=== PATIENT | female | born 1980 | race Caucasian/White ===

== ENCOUNTER 2017-12-26 12:36 | Emergency (ER) | payer BC, SELFPAY ==
[2017-12-26 12:52] VITALS: BP 106/66; PULSE 88; RESP 16; TEMP 36.4; O2SAT 97; BMI 26.2
--- NOTE | 2017-12-26 13:05 | ED_ITS ---
HPI - Extremity Injury (Upper) <NAVI Hair - Last Filed: 12/26/17 21:42> General Chief Complaint: Extremity Injury, Upper Stated Complaint: BEE STING LEFT HAND, CANT GET RING OFF Time Seen by Provider: 12/26/17 13:06 History of Present Illness HPI narrative: Healthy 37-year-old female here for complaint of swelling into her left hand status post being stung by a bee yesterday. She reports increased swelling last night until this morning where she is now unable to remove her wedding band. She reports increased pain around the wedding band area as manipulation and trying to get the ring off as cause discomfort. She denies any shortness of breath. She denies any tightness in her throat. Symptoms are limited to the left hand. She denies having a history of anaphylaxis due to bee stings. No other concerns or complaints at this time. MD complaint: injury to: left and hand Related Data Home Medications Medication Instructions Recorded Confirmed acetaminophen 325 mg capsule 325 mg PO Q6H PRN 12/26/17 12/26/17 diphenhydramine 25 mg capsule 25 mg PO Q4-6H PRN 12/26/17 12/26/17 lorazepam 0.5 mg tablet 0.25 mg PO BEDTIME PRN 12/26/17 12/26/17 sertraline PO 12/26/17 12/26/17 Previous Rx's Medication Instructions Recorded cetirizine 10 mg PO DAILY #7 tab 12/26/17 Allergies Allergy/AdvReac Type Severity Reaction Status Date / Time No Known Drug Allergies Allergy Verified 12/26/17 12:52 Review of Systems <NAVI Hair - Last Filed: 12/26/17 21:42> Constitutional Denies chills, Denies fever(s), Denies lethargy and Denies weakness Eyes Denies change in vision, Denies eye discharge, Denies irritation and Denies loss of vision ENT Ears, Nose, Mouth, and Throat: Denies change in voice, Denies neck pain and Denies sore throat Cardiovascular Denies chest pain, Denies irregular heart rhythm, Denies lightheadedness, Denies palpitations, Denies dyspnea, Denies dyspnea on exertion and Denies orthopnea Respiratory Denies cough, Denies dyspnea, Denies dyspnea on exertion and Denies wheezing Gastrointestinal Gastrointestinal: Denies abdominal pain, Denies change in bowel habits, Denies diarrhea, Denies nausea and Denies vomiting Genitourinary Denies hematuria, Denies flank pain, Denies urinary incontinence and Denies urinary urgency Musculoskeletal Denies neck pain Comments: Left hand and fingers swelling Integumentary/Breasts Denies pruritus, Denies erythema, Denies rash and Denies wounds Neurologic Denies confusion, Denies loss of vision and Denies weakness Psychiatric Denies anxiety, Denies confusion, Denies depression, Denies homicidal ideation and Denies suicidal ideation Endocrine Denies palpitations Allergic/Immunologic Denies wheezing Exam <NAVI Hair - Last Filed: 12/26/17 21:42> Initial Vital Signs Initial Vital Signs: Vital Signs Temperature 97.6 F 12/26/17 12:52 Pulse Rate 88 12/26/17 12:52 Respiratory Rate 16 12/26/17 12:52 Blood Pressure 106/66 12/26/17 12:52 Pulse Oximetry 97 12/26/17 12:52 Const General: cooperative and well developed Nutritional Appearance: well nourished Orientation: alert, awake, oriented x3 and not confused [facility] Mouth: oral mucosae normal and moist mucous membranes Eyes Conjunctivae: conjunctivae normal Sclera: sclerae normal Pupils: PERRL EOM: EOM intact bilaterally Resp Effort & Inspection: normal respiratory effort, able to speak in complete sentences, no respiratory distress and no use of accessory muscles Auscultation: clear to auscultation bilaterally, no rales, no rhonchi and no wheezes Cardio Rate: regular rate Rhythm: regular rhythm Heart Sounds: no click, no gallops, no murmurs and no rubs Pulses: normal peripheral pulses Skin General: no rashes or lesions noted, No jaundice and No petechiae Extrem Other: Swelling to the left hand and fingers. No signs of trauma. Distal sensation is intact. Distal cap refill less than 2 sec. Full range of motion. <Roxana Medina DO - Last Filed: 12/27/17 08:12> Initial Vital Signs Initial Vital Signs: Vital Signs Temperature 97.6 F 12/26/17 12:52 Pulse Rate 88 12/26/17 12:52 Respiratory Rate 16 12/26/17 12:52 Blood Pressure 106/66 12/26/17 12:52 Pulse Oximetry 97 12/26/17 12:52 Procedures <NAVI Hair - Last Filed: 12/26/17 21:42> Misc Procedure Name of Procedure: Wedding band to left ring finger was removed with ring cutter. No complications. Patient tolerated well distal CMS is intact Technique/Description of procedure performed: Wedding band to left ring finger was removed with ring cutter. No complications. Patient tolerated well distal CMS is intact Patient tolerated procedure: Well Complications: none Course <NAVI Hair - Last Filed: 12/26/17 21:42> Vital Signs - 8 hr 12/26/17 13:51 Pulse Rate 82 Blood Pressure 116/72 Pulse Oximetry 100 <Roxana Medina DO - Last Filed: 12/27/17 08:12> Vital Signs - 8 hr 12/26/17 13:51 Pulse Rate 82 Blood Pressure 116/72 Pulse Oximetry 100 MDM - Extremity Injury (Upper) <NAVI Hair - Last Filed: 12/26/17 21:42> MDM Narrative Medical decision making narrative: Due to amount of swelling into the left ring finger secondary to bee sting ring had they removed by a ring cutter. Patient tolerated well no complications. Patient had some relief after removing the ring. Ring was given back to patient. She is prescribed Zyrtec to use over the next several days to help with histamine response may use Benadryl at night.. [id number] ibuprofen as needed for any discomfort. Follow up with primary care provider in the next few days for re-evaluation. For any worsening symptoms return emergency room. Discharge Plan Departure Patient Disposition: Home, Self-Care Clinical Impression: Localized swelling on left hand, Bee sting Discharge Date/Time: 12/26/17 13:52 Interventions: ED Discharge Assessment Last Done: 12/26/17 13:51 Instructions: DI for Insect Bites and Stings Activity Restrictions/Additional Instructions: Rate was removed in the emergency room for comfort and to prevent loss of circulation. Zyrtec as prescribed which is an antihistamine that is not a sedating as Benadryl to use during the day use as directed. May use Benadryl at night. Uaxq-gzi-dngbqss ibuprofen as needed for any discomfort. Follow up with her primary care provider in the next few days for re-evaluation. For any worsening symptoms return to the emergency room. Prescription was like chronically sent to preferred pharmacy. Prescriptions: New cetirizine 10 mg tablet 10 mg PO DAILY Qty: 7 RF: 0 No Action lorazepam 0.5 mg tablet 0.25 mg PO BEDTIME PRNRF: 0 diphenhydramine HCl [Benadryl] 25 mg capsule 25 mg PO Q4-6H PRNRF: 0 acetaminophen [Tylenol] 325 mg capsule 325 mg PO Q6H PRNRF: 0 sertraline PO RF: 0 Referrals: Haylee Harvey ARNP [Primary Care Provider] - <Roxana Medina DO - Last Filed: 12/27/17 08:12> Cosign ED Attending Dianeature Attestation: I was immediately available in the department for consultation. Documentation has been reviewed. I agree with assessment and plan.
[2017-12-26 13:10] VITALS: BP 119/72; PULSE 93; RESP 18; O2SAT 99
--- NOTE | 2017-12-26 13:40 | PC.NURSE ---
Pt was stung by a bee yesterday,severe swelling of left hand. Pt unable to remove ring on ring finger. Pt has positive cms distal to ring
[2017-12-26 13:51] VITALS: BP 116/72; PULSE 82; O2SAT 100
== END 2017-12-26 13:52 | disposition home or self-care (01) ==
PROVIDERS: Emergency Provider Nurse Practitioner Family; PCP Nurse Practitioner Family
DX: M79.89 Other specified soft tissue disorders (principal)
CPT/HCPCS: 99282

== ENCOUNTER → 2019-02-06 09:50 | Outpatient (CLI) | payer BC, SELFPAY ==
--- NOTE | 2019-02-06 | DI.US.S_ITS ---
PROCEDURE: US PELVIC COMPLETE INDICATIONS: ABN UTERINE AND VAGINAL BLEEDING, UNSPECIFIED TECHNIQUE: Real-time scanning was performed of the pelvic organs, with image documentation. Additional endovaginal scanning was necessary due to incomplete visualization of the adnexal and endometrial structures by transabdominal scanning. COMPARISON: [facility], US, PELVIC COMPLETE, 08/11/2015, 10:48. FINDINGS: Transabdominal scanning: Trace free pelvic fluid. Endovaginal scanning: Uterus: Uterus is anteverted and normal in size at 9.7 x 4.2 x 5.5 cm. No uterine mass seen. Uterine echotexture is somewhat heterogeneous. The endometrium measures 10 mm in combined thickness. Echogenic focus in the lower uterine segment measuring 5 mm with adjacent vascularity. Ovaries: Normal in size and echogenicity. No cyst or mass. Right ovary measures 3.4 x 2.1 x 1.7 cm. Left ovary measures 3.8 x 2 x 3 cm. IMPRESSION: 1. Normal endometrial thickness measuring 10 mm. 2. Questionable endometrial polyp the measuring 5 mm. 3. Normal ovaries. Trace physiologic. Dictated by: Johnnie Rascon M.D. on 02/06/2019 at 11:27 Approved by: Johnnie Rascon M.D. on 02/06/2019 at 11:34
== END ==
PROVIDERS: PCP Nurse Practitioner Family; Visit Provider Nurse Practitioner Family
DX: N93.9 Abnormal uterine and vaginal bleeding, unspecified (principal)
CPT/HCPCS: 76830; 76856

== ENCOUNTER → 2020-03-25 12:53 | Outpatient (CLI) | payer BC, SELFPAY ==
--- NOTE | 2020-03-25 13:02 | DI.CT.S_ITS ---
PROCEDURE: CT ABDOMEN PELVIS WO CON INDICATIONS: MICROSCOPIC HEMATURIA TECHNIQUE: Noncontrast 5 mm thick sections acquired from the diaphragms to the symphysis. 5 mm thick coronal and sagittal reformats were then performed. For radiation dose reduction, the following was used: automated exposure control, adjustment of mA and/or kV according to patient size. COMPARISON: None. FINDINGS: Image quality: Excellent. Lung bases: Lung bases are clear. Heart size is normal. Urinary system: Both kidneys are normal in size. No kidney stones. No hydronephrosis or perinephric fat stranding. Both ureters appear non-dilated throughout their expected courses. Bladder wall thickness is normal; no calcified bladder stones. Other solid organs: Liver is normal in size. Gallbladder negative . Pancreas is normal in contours. Spleen is normal in size. No adrenal nodules. Peritoneum and bowel: Unenhanced bowel loops demonstrate normal wall thickness and caliber. No free fluid or air. Nodes and vessels: No retroperitoneal or mesenteric adenopathy by size criteria. Aorta and inferior vena cava are normal in caliber. Abdominal wall: No ventral hernias. Pelvis: No free pelvic fluid. No inguinal hernias or adenopathy. Bones: No suspicious bony lesions. No vertebral body compression fractures. IMPRESSION: No urolithiasis. No evidence of urinary obstruction Normal appendix Elsewhere, no acute abnormality Dictated by: Ayan Link M.D. on 03/25/2020 at 15:04 Approved by: Ayan Link M.D. on 03/25/2020 at 15:24
== END ==
PROVIDERS: PCP Internal Medicine; Referring Provider Internal Medicine; Visit Provider Internal Medicine
DX: R31.29 Other microscopic hematuria (principal)
CPT/HCPCS: 74176

== ENCOUNTER → 2020-12-10 12:19 | Outpatient (CLI) | payer OTHER, SELFPAY ==
--- NOTE | 2020-12-10 | DI.US.S_ITS ---
PROCEDURE: US PELVIC COMPLETE INDICATIONS: DUB TECHNIQUE: Real-time scanning was performed of the pelvic organs, with image documentation. Additional endovaginal scanning was necessary due to incomplete visualization of the adnexal and endometrial structures by transabdominal scanning. COMPARISON: [facility], , US PELVIC COMPLETE, 02/06/2019, 10:06. FINDINGS: Uterus: Uterus is normal in size at 8.9 x 4.5 x 5.6 cm. The endometrium measures 15.6 mm in combined thickness. Echogenic polypoid mass again seen involving the endometrial complex measuring 1.0 x 0.6 x 0.8 cm. Ovaries: Right ovary is normal measuring 1.7 x 1.6 x 2.1 cm and the left ovary is not seen. Other: No pathologic free abdominal or pelvic fluid. IMPRESSION: 1. Possible endometrial polyp or other neoplastic process which has increased in size now measuring up to 1.0 cm. Gynecologic consultation is recommended for further assessment and if indicated, pre and post-contrast gynecologic protocol MRI could be performed for further assessment. Dictated by: Gabriel JOYCE Interpreted: Jose Lincoln MD on 12/10/2020 at 13:09 Transcribed by: ADONAY on 12/10/2020 at 13:11 Approved by: Steven Carlisle M.D. on 12/10/2020 at 13:39
== END ==
PROVIDERS: PCP Internal Medicine; Referring Provider Internal Medicine; Visit Provider Internal Medicine
DX: N93.9 Abnormal uterine and vaginal bleeding, unspecified (principal); N84.0 Polyp of corpus uteri
CPT/HCPCS: 76830; 76856

== ENCOUNTER → 2021-02-17 15:40 | Outpatient (CLI) | payer OTHER, SELFPAY ==
[2021-02-17 16:57] LABS: COVID19 -Nasal RAPID Negative (Negative)
== END ==
PROVIDERS: PCP Internal Medicine; Visit Provider Specialist
DX: Z01.812 Encounter for preprocedural laboratory examination (principal); Z20.822 Contact with and (suspected) exposure to COVID-19
CPT/HCPCS: 87635

== ENCOUNTER 2021-02-18 08:44 | Day surgery (SDC) | payer OTHER, SELFPAY ==
[2021-02-15 08:25] VITALS: BMI 28.3
[2021-02-18] VITALS (9 sets, daily range): BP systolic 106–138; BP diastolic 65–84; PULSE 84–98; RESP 12–18; TEMP 36.6–37.1; O2SAT 95–99; BMI 28.3
--- NOTE | 2021-02-18 | PATH_ITS ---
[facility] Accession Number: [id number] . 01 Material submitted: . PART A: endometrium - ENDOMETRIAL CURETTINGS PART B: endometrium - ENDOMETRIAL POLYP . 01 Diagnosis: A. Endometrium, Curettage: Late proliferative endometrium with breakdown, and focal features suggestive of polyp. Negative for endometrioid intraepithelial neoplasia and malignancy. . B. Endometrial Polyp, Polypectomy: A fragment of nonproliferative endometrium with features of polyp. Background endometrium with late proliferative features and breakdown. Negative for endometrioid intraepithelial neoplasia and malignancy. MRV 02/22/2021 1631 Local . 01 Electronically signed: . Morena Wang MD, Pathologist NPI- [id number] . 01 Gross description: . Part A: ENDOMETRIAL CURETTINGS: Received in formalin are multiple fragment(s) of wood, soft tissue measuring 2.6 x 2.0 x 0.6 cm in aggregate submitted entirely in 1 cassette(s) Part B: ENDOMETRIAL POLYP: Received in formalin are 5 fragment(s) of wood, soft tissue measuring 0.7 x 0.6 x 0.5 cm to 0.4 x 0.3 x 0.1 cm submitted entirely in 1 cassette(s) /QBJ 02/19/2021 0307 Local . 01 Pathologist provided ICD-10: N84.0, N94.89 . 01 CPT . 265335, [id number] Performed at: 01 [facility] [address] [place] [id number] MD Reese Muñoz MD Phone: [phone]
[2021-02-18] MEDS: LACTATED RINGERS 1,000 ML 100 ML IV ×2 (09:25→10:48)
--- NOTE | 2021-02-18 11:40 | PM.PREOP ---
Pre-operative Note COVID-19 COVID-19 status: Negative Result date/Date tested (Pos, Neg/Pending): 02/17/21 Interval Note History & Physical reviewed/Exam performed by Physician: Yes Changes to H&P: No
--- NOTE | 2021-02-18 12:28 | SUR.OPER ---
Lithotomy on padded OR bed, head on pillow, arms secured on padded arm boards at <90 degrees abduction. Legs secured in padded yellow fins stirrups.
--- NOTE | 2021-02-18 12:43 | PM.OP.1 ---
Operative Date/Time/Diagnoses Date of procedure: 02/18/21 Time of procedure: 12:44 Pre-op diagnosis: Menorrhagia with endometrial mass on ultrasound Post-op diagnosis: same Procedure & Clinicians Procedure: Hysteroscopy with resection of polyps and endometrial curettage Same procedure as scheduled: Yes Indications: Menorrhagia with ultrasound showing an intracavitary mass Surgeon: Ava Saleh Click Yes if Unassisted: Yes Anesthesia Type: General Operative Notes Findings: 2 endometrial polyps, normal endometrium otherwise Closure Type: not applicable Specimen(s): other (Endometrial polyps and endometrial curettage) Estimated Blood Loss (mL): 10 Blood products transfused: none Procedure in detail: The patient was brought to the operating room where she underwent general anesthesia. She was placed in low stirrups She was prepped and draped in usual sterile fashion with pulsatile stockings in place and functional, warming in place. A single-tooth tenaculum was placed on the anterior lip of the cervix and the uterus dilated to #8 Hegar dilator. The hysteroscope was placed into the uterus with a sorbitol solution running and under constant suction. The resecting loop set at 80 W of cutting was used to resect the polyps down to the level of the endometrium. A endometrial curettage was performed. The polyps and the endometrial curettage was sent to pathology. The patient went to recovery room in good condition counts of instruments and sponges were correct. The sorbitol solution I=O approximately 1000 mL. Complications: none Post-operative Condition: stable Disposition: same day surgery Plan for aftercare: Home when awake and stable. Patient will be contacted for phone postop visit
[2021-02-18] MEDS: fentaNYL 100 MCG/2 ML INJ IV (12:57)
--- NOTE | 2021-02-18 13:11 | SUR.PHASEI ---
received to PACU after general anesthesia. Airway patent, self maintained. Report from OBI Nguyen and Dr Khan.
[2021-02-18] MEDS: KETOROLAC 30 MG/ML VIAL IV (13:27)
[2021-02-18] MEDS: ACETAMINOPHEN 325 MG TABLET 975 MG PO (13:29)
[2021-02-18] MEDS: OXYCODONE IR 5 MG TABLET PO ×2 (13:30→14:17)
== END 2021-02-18 14:25 | disposition home or self-care (01) ==
PROVIDERS: PCP Internal Medicine; Referring Provider Specialist; Visit Provider Specialist
PROC: 0UDB8ZZ Extraction of Endometrium, Via Natural or Artificial Opening Endoscopic (ICD-10-PCS; CPT 58558; principal; 2021-02-18 09:45)
DX: N84.0 Polyp of corpus uteri (principal); F17.210 Nicotine dependence, cigarettes, uncomplicated; F32.9 Major depressive disorder, single episode, unspecified
CPT/HCPCS: 58558; 81025; J1100; J1885; J2250; J2405; J2704; J3010

== ENCOUNTER → 2021-06-09 17:44 | Outpatient (ROUT) | payer OTHER, SELFPAY ==
[2021-06-09 18:59] LABS: COVID-19 CEPHEID PCR (VTM/NP) POSITIVE (Negative)
== END ==
PROVIDERS: PCP Internal Medicine; Visit Provider Family Medicine
DX: Z03.818 Encounter for observation for suspected exposure to other biological agents ruled out (principal)
CPT/HCPCS: U0003

== ENCOUNTER → 2022-02-07 14:47 | Outpatient (CLI) | payer OTHER, SELFPAY ==
--- NOTE | 2022-02-07 | DI.US.S_ITS ---
PROCEDURE: US PELVIC COMPLETE INDICATIONS: Abnormal uterine and vaginal bleeding, unspecified TECHNIQUE: Real-time scanning was performed of the pelvic organs, with image documentation. Additional endovaginal scanning was necessary due to incomplete visualization of the adnexal and endometrial structures by transabdominal scanning. COMPARISON: [facility], US, US PELVIC COMPLETE, 12/10/2020, 12:32. FINDINGS: Uterus: Uterus is anteverted and normal in size at 9.0 x 4.5 x 5.8 cm. The myometrium is homogeneous. The endometrium measures 10.8 mm combined thickness. Ovaries: The right ovary measures 2.7 x 2.2 x 2.3 cm, with a calculated ovarian volume of 7.1 cc. The left ovary measures 5.1 x 3.2 x 4.2 cm, with a calculated ovarian volume of 35.6 cc. The ovaries have a normal sonographic appearance. There is a 1.8 x 1.4 cm complex cyst in the right ovary, as well as a 2.9 x 32.3 cm complex cyst in the left ovary. Additional 1.6 cm simple cyst noted in the left ovary. No adnexal masses are seen. Other: No pathologic free abdominal or pelvic fluid. IMPRESSION: 1. Bilateral complex ovarian cysts measure up to 1.6 cm on the left. Approved by: Gael Gomez M.D. on 02/07/2022 at 17:24
== END ==
PROVIDERS: PCP Internal Medicine; Referring Provider Internal Medicine; Visit Provider Internal Medicine
DX: N93.9 Abnormal uterine and vaginal bleeding, unspecified; N83.292 Other ovarian cyst, left side; N83.291 Other ovarian cyst, right side
CPT/HCPCS: 76830; 76856

== ENCOUNTER → 2022-07-19 14:19 | Outpatient (CLI) | payer OTHER, SELFPAY ==
--- NOTE | 2022-07-19 14:22 | DI.US.S_ITS ---
PROCEDURE: US PELVIC COMPLETE INDICATIONS: FOLLOW-UP OVARIAN CYSTS TECHNIQUE: Real-time scanning was performed of the pelvic organs, with image documentation. Additional endovaginal scanning was necessary due to incomplete visualization of the adnexal and endometrial structures by transabdominal scanning. COMPARISON: [facility], US, US PELVIC COMPLETE, 02/07/2022, 14:57. FINDINGS: Uterus: Uterus is anteverted and normal in size at 9.0 x 4.3 x 6.1 cm. The myometrium is homogeneous. The endometrium measures 6.9 mm combined thickness. Ovaries: The right ovary measures 3.1 x 2.0 x 3.7 cm, with a calculated ovarian volume of 11.9 cc. The left ovary measures 4.3 x 2.8 x 2.0 cm, with a calculated ovarian volume of 13.8 cc. The ovaries have a normal sonographic appearance. Less than 12 follicles can be seen in each ovary. No adnexal masses are seen. Simple cysts are present within the bilateral ovaries. The largest on the right measures 1.4 cm in diameter and the largest on the left measures 1.4 cm in diameter. Other: No pathologic free abdominal or pelvic fluid. IMPRESSION: 1. Bilateral simple ovarian cysts which are within physiologic limits for size given patient age. We strive to produce accurate, complete, and clear reports of imaging services. To assist us in improving patient care, this report was composed using standard report templates and voice recognition software. Therefore, it may contain abnormal punctuation, insertions and/or omissions. Occasional wrong-word or sound-alike substitutions may occur. Though we review the report and make efforts to correct it, we do recommend that the report be read carefully in proper context to recognize any text inaccuracies. Dictated by: Kimberly Gaytan M.D. on 07/19/2022 at 18:00 Approved by: Kimberly Gaytan M.D. on 07/19/2022 at 18:02
== END ==
PROVIDERS: PCP Internal Medicine; Referring Provider Obstetrics & Gynecology; Visit Provider Obstetrics & Gynecology
DX: N83.291 Other ovarian cyst, right side (principal); N83.292 Other ovarian cyst, left side
CPT/HCPCS: 76830; 76856

== ENCOUNTER 2022-09-08 15:45 | Emergency (ER) | payer OTHER, SELFPAY ==
[2022-09-08 15:51] VITALS: BP 137/89; PULSE 87; RESP 17; TEMP 36.6; O2SAT 99; BMI 25.2
--- NOTE | 2022-09-08 16:58 | ED_ITS ---
HPI - Female Genitourinary <Elier Pikcard PA-C - Last Filed: 09/08/22 18:16> General Chief complaint: Urogenital-Female Stated complaint: Urinary tract pain Time Seen by Provider: 09/08/22 16:56 Source: patient Mode of arrival: Ambulatory History of Present Illness HPI Narrative: This is a 41-year-old female presents emergency department due to urinary hesitancy as well as dysuria for approximately the last week. She also states some mild lower abdominal pain. Denies any fevers, nausea, vomiting, lower back pain, or any other concerning signs or symptoms. Patient denies any vaginal discharge and is stable and committed relationship denies any rashes or hematuria. Related Data Home Medications Medication Instructions Recorded Confirmed acetaminophen 325 mg capsule 325 mg PO Q6H PRN Pain 12/26/17 05/11/22 (Tylenol) bupropion HCl 150 mg 24 hr tablet, 150 mg PO QAM 01/28/21 09/08/22 extended release sertraline 100 mg tablet 150 mg PO DAILY 02/17/21 09/08/22 naproxen 250 mg tablet 250 mg PO BID 09/08/22 09/08/22 Previous Rx's Medication Instructions Recorded nitrofurantoin 100 mg PO Q12H 5 days #10 caps 09/08/22 monohydrate/macrocrystals 100 mg capsule (Macrobid) Allergies Allergy/AdvReac Type Severity Reaction Status Date / Time No Known Drug Allergies Allergy Verified 09/08/22 15:53 Review of Systems <Elier Pickard PA-C - Last Filed: 09/08/22 18:16> Review of Systems Narrative: GENERAL: Denies chills, fatigue, malaise, fever, sweats. HEENT: Denies sinus pain, ear pain, sore throat, difficulty swallowing, dizziness. RESPIRATORY: Denies dyspnea, cough, wheezing, hemoptysis, sputum. CARDIOVASCULAR: Denies chest pain, palpitations, orthopnea, edema, GASTROINTESTINAL: Denies nausea, vomiting, abdominal pain, diarrhea, constipation, melena. : Reports urinary hesitancy and dysuria MUSCULOSKELETAL: denies weakness, joint pain, or bony pain SKIN: Denies rash, skin lesions, or other NEUROLOGIC: Denies weakness, headache, numbness, change in speech, confusion, seizures, incoordination. PSYCHIATRIC: No concerning psychosocial issues. 12 point review of systems is negative except for those stated above Patient History <Elier Pickard PA-C - Last Filed: 09/08/22 18:16> alcohol intake frequency: 0-2 drinks per day Substance Use Type: does not use Exam <Elier Pickard PA-C - Last Filed: 09/08/22 18:16> Narrative Exam Narrative: GENERAL: Well-developed patient, in mild distress. HEAD: Atraumatic. Normocephalic. EYES: Pupils equal round and reactive. Extraocular motions intact. No scleral i cterus. No injection or drainage. ENT: Nose without bleeding, purulent drainage. Throat without erythema, tonsillar hypertrophy or exudate. Airway patent. NECK: Trachea midline. Non tender CARDIOVASCULAR: Regular rate and rhythm without murmurs, gallops, or rubs. RESPIRATORY: Clear to auscultation. Breath sounds equal bilaterally. No wheezes, rales, or rhonchi. GASTROINTESTINAL: Abdomen soft, non-tender, nondistended. EXTREMITIES: No edema or joint tenderness. BACK: Nontender without deformity or crepitance. No flank tenderness. NEURO: AOx3. SKIN: No rash or erythema of visible areas Initial Vital Signs Initial Vital Signs: Vital Signs Temperature 98 F 09/08/22 15:51 Pulse Rate 87 09/08/22 15:51 Respiratory Rate 17 09/08/22 15:51 Blood Pressure 137/89 09/08/22 15:51 Pulse Oximetry 99 09/08/22 15:51 Oxygen Delivery Method Room Air 09/08/22 15:51 <Roxana Medina DO - Last Filed: 09/09/22 07:15> Initial Vital Signs Initial Vital Signs: Vital Signs Temperature 98 F 09/08/22 15:51 Pulse Rate 87 09/08/22 15:51 Respiratory Rate 17 09/08/22 15:51 Blood Pressure 137/89 09/08/22 15:51 Pulse Oximetry 99 09/08/22 15:51 Oxygen Delivery Method Room Air 09/08/22 15:51 Course <Elier Pickard PA-C - Last Filed: 09/08/22 18:16> Orders Ordered: ED Orders 09/08/22 16:36 Urinalysis and Microscopic Stat Urine Culture Stat Vital Signs Vital signs: Vital Signs - 8 hr 09/08/22 15:51 Temperature 98 F Pulse Rate 87 Respiratory Rate 17 Blood Pressure 137/89 Pulse Oximetry 99 Oxygen Delivery Method Room Air <Roxana Medina DO - Last Filed: 09/09/22 07:15> Orders Ordered: ED Orders 09/08/22 16:36 Urinalysis and Microscopic Stat Urine Culture Stat Vital Signs Vital signs: Vital Signs - 8 hr 09/08/22 15:51 Temperature 98 F Pulse Rate 87 Respiratory Rate 17 Blood Pressure 137/89 Pulse Oximetry 99 Oxygen Delivery Method Room Air MDM - Female Genitourinary <Elier Pickard PA-C - Last Filed: 09/08/22 18:16> Lab Data Labs: Lab Results 09/08/22 Range/Units 16:36 Urine Color Yellow Urine Appearance Slightly cloudy Urine pH 6.0 (4.5-8.0) Ur Specific [place] >=1.030 H (1.000-1.035) Urine Protein 2+ H (Negative) Urine Glucose (UA) Negative (Negative) g/dL Urine Ketones Negative (NEGATIVE) Urine Occult Blood 2+ H (Negative) Urine Nitrate Negative (Negative) Urine Bilirubin Negative (NEGATIVE) Urine Urobilinogen 1.0 (0.2) E.U./dL Ur Leukocyte Esterase Negative (NEGATIVE) Urine RBC 5-10/hpf H (0-5/HPF) Urine WBC 1-5/hpf (0-5/HPF) Ur Squamous Epith Cells 5-10 /hpf H (0-5/HPF) Amorphous Sediment 1+ Urine Bacteria Few (2-10) H (None) Urine Mucus 1+ H (Negative) Ur Culture Indicated? Specimen cultured Point of Care Testing Test Results Negative Urine Dip Bedside Urine Glucose Negative Bedside Urine Bilirubin - Negative Bedside Urine Ketone +/- 5 Urine Specific [place] 1.030 Bedside Urine Occult Blood +/- Bedside Urine pH 6.0 Bedside Urine Protein + 30 Bedside Urine Urobilinogen - Negative Bedside Urine Nitrite - Negative Bedside Urine Leukocytes - Negative Esterase MDM Narrative Medical decision making narrative: MDM * differential diagnosis includes but not limited to UTI, pyelonephritis, gonorrhea, chlamydia, PID * Prior records reviewed: Patient has not been here for similar complaints in the past * My lab interpretation: UA positive for blood and bacteria * My imgaing interpretation: None * Clinical Decision Rules/Scores evaluated: None * Independent discussions with: None ED Course: This is a 41-year-old female presents emergency department due to suspected UTI based on symptoms. UA did not show any leukocytes or nitrites but did show positive for blood and bacteria. Cyst likelihood that patient had any kind of STD and deemed to be very low as she is stable income in relationship and does not describe any vaginal discharge. Low concern for pyelonephritis at this time as she has no systemic symptoms is afebrile. Will treat with oral antibiotics. Shared Decision Making: Discussed plan with patient who is comfortable with the plan. Social Considerations: None Disposition: Discharged to home <Roxana Medina, - Last Filed: 09/09/22 07:15> Lab Data Labs: Lab Results 09/08/22 Range/Units 16:36 Urine Color Yellow Urine Appearance Slightly cloudy Urine pH 6.0 (4.5-8.0) Ur Specific [place] >=1.030 H (1.000-1.035) Urine Protein 2+ H (Negative) Urine Glucose (UA) Negative (Negative) g/dL Urine Ketones Negative (NEGATIVE) Urine Occult Blood 2+ H (Negative) Urine Nitrate Negative (Negative) Urine Bilirubin Negative (NEGATIVE) Urine Urobilinogen 1.0 (0.2) E.U./dL Ur Leukocyte Esterase Negative (NEGATIVE) Urine RBC 5-10/hpf H (0-5/HPF) Urine WBC 1-5/hpf (0-5/HPF) Ur Squamous Epith Cells 5-10 /hpf H (0-5/HPF) Amorphous Sediment 1+ Urine Bacteria Few (2-10) H (None) Urine Mucus 1+ H (Negative) Ur Culture Indicated? Specimen cultured Point of Care Testing Test Results Negative Urine Dip Bedside Urine Glucose Negative Bedside Urine Bilirubin - Negative Bedside Urine Ketone +/- 5 Urine Specific [place] 1.030 Bedside Urine Occult Blood +/- Bedside Urine pH 6.0 Bedside Urine Protein + 30 Bedside Urine Urobilinogen - Negative Bedside Urine Nitrite - Negative Bedside Urine Leukocytes - Negative Esterase Discharge Plan Departure Patient Disposition: Home Clinical Impression: Dysuria Instructions: DI for Urinary Tract Infection (UTI) Activity Restrictions/Additional Instructions: Thank you for coming to the [facility] Emergency Department today. Patient symptoms we will treat for a suspected UTI. Please begin taking the antibiotics that was prescribed. I hope you feel better soon. Prescriptions: New nitrofurantoin monohyd/m-cryst [Macrobid] 100 mg capsule 100 mg PO Q12H 5 Days Qty: 10 0RF Rx Instructions: must administer with a meal/food No Action acetaminophen [Tylenol] 325 mg capsule 325 mg PO Q6H PRN (Reason: Pain) bupropion HCl 150 mg tablet extended release 24 hr 150 mg PO QAM sertraline 100 mg tablet 150 mg PO DAILY naproxen 250 mg Tablet 250 mg PO BID Referrals: Diann Harris ARNP [Primary Care Provider] - Stand Alone Forms: Patient Portal/API <Roxana Medina DO - Last Filed: 09/09/22 07:15> Cosign ED Attending Cosramiroature Attestation: I was immediately available in the department for consultation. Documentation has been reviewed.
[2022-09-08 17:01] LABS: Bilirubin Urine UA NEGATIVE (NEGATIVE); Color Urine UA YELLOW; Glucose Urine UA NEGATIVE (Negative); Ketones Urine UA NEGATIVE (NEGATIVE); Leukocyte Esterase Urine UA NEGATIVE (NEGATIVE); Nitrite Urine UA NEGATIVE (Negative); Occult Blood Urine UA 2+ (Negative); Protein Urine UA 2+ (Negative); Specific Gravity Urine UA >=1.030 (1.000-1.035)
[2022-09-08 17:04] LABS: Appearance Urine UA Slightly Cloudy
[2022-09-08 17:16] LABS: Amorphous Sediment Urine 1+; Bacteria Urine Few (2-10); Culture Indicated Urine Specimen Cultured; Mucus Urine 1+ (Negative); RBC Urine 5-10/HPF (0-5/HPF); Squamous Epithelial Cell Urine 5-10 /HPF (0-5/HPF); WBC Urine 1-5/HPF (0-5/HPF)
--- NOTE | 2022-09-08 17:38 | PC.NURSE ---
Patient reports symptoms started yesterday, urine dark I know i run on dehydrated side Reports tried hydrating and flushing out urine but not able to fully empty bladder. Urges to go but small amounts. Denies fevers or chills. Mild lower back pain
== END 2022-09-08 18:06 | disposition home or self-care (01) ==
PROVIDERS: Emergency Medicine; Emergency Provider Physician Assistant Medical; PCP Internal Medicine
DX: R30.0 Dysuria (principal)
CPT/HCPCS: 81001; 81003; 81025; 87086; 99282

== ENCOUNTER → 2023-09-04 17:18 | Outpatient (CLI) | payer OTHER, SELFPAY ==
--- NOTE | 2023-09-04 | DI.MG.S_ITS ---
BILATERAL DIGITAL SCREENING MAMMOGRAM 3D/2D WITH CAD: 09/04/2023 CLINICAL: Baseline exam. Routine screening. No prior exams were available for comparison. Both breasts are heterogeneously dense, which may obscure small masses (category c / 51-75% glandular tissue). Current study was also evaluated with a Computer Aided Detection (CAD) system. No significant masses, calcifications, or other findings are seen in either breast. IMPRESSION: NEGATIVE There is no mammographic evidence of malignancy. A 1 year screening mammogram is recommended. Based on the Tyrer Cuzick model (a risk assessment model) the patient's lifetime risk is 10.5% and her 10 year risk is 1.3%. According to the ACR, ACS, and NCCN guidelines, an annual breast MRI exam along with mammogram is recommended if the patient's lifetime risk is 20% or greater. This exam was interpreted at Station ID: [id number]. NOTE: For mammograms, a report in lay terms will be sent to the patient. Approximately 15% of breast malignancies will not be visualized mammographically. In the management of a palpable breast mass, a negative mammogram must not discourage biopsy of a clinically suspicious lesion. Electronically Signed By: Johnnie joshi/kellee:09/05/2023 08:18:41 letter sent: Normal Exam ACR BI-RADS Category 1: Negative [id number]
== END ==
PROVIDERS: PCP Internal Medicine; Referring Provider Internal Medicine; Visit Provider Internal Medicine
DX: Z12.31 Encounter for screening mammogram for malignant neoplasm of breast (principal); R92.333 Mammographic heterogeneous density, bilateral breasts
CPT/HCPCS: 77063; 77067

== ENCOUNTER → 2024-11-06 14:19 | Outpatient (CLI) | payer OTHER, SELFPAY ==
[2024-11-06 16:23] LABS: Influenza A - CEPHEID Flu A NEGATIVE (NEGATIVE); Influenza B - CEPHEID Flu B NEGATIVE (NEGATIVE); Respiratory Syncytial Virus Negative (Negative)
[2024-11-06 16:28] LABS: COVID-19 CEPHEID 4-PLEX PCR Negative (Negative)
== END ==
PROVIDERS: PCP Internal Medicine; Visit Provider Nurse Practitioner Family
DX: R05.1 Acute cough (principal)
CPT/HCPCS: 0241U

== ENCOUNTER → 2024-11-06 14:27 | Outpatient (CLI) | payer OTHER, SELFPAY ==
--- NOTE | 2024-11-06 14:28 | DI.RAD.S_ITS ---
PROCEDURE: XR CHEST 2V INDICATIONS: Cough TECHNIQUE: 2 views of the chest were acquired. COMPARISON: None. FINDINGS: Surgical changes and devices: None. Lungs and pleura: Lungs are clear. No pleural effusions or pneumothorax. Mediastinum: Mediastinal contours are normal. Heart size is normal. Bones and chest wall: No suspicious bony abnormalities. Soft tissues appear unremarkable. IMPRESSION: No acute pulmonary process. Dictated by: Maria M Orlando M.D. on 11/06/2024 at 16:29 Approved by: Maria M Orlando M.D. on 11/06/2024 at 16:29
== END ==
PROVIDERS: Referring Provider Nurse Practitioner Family; Visit Provider Nurse Practitioner Family
DX: R05.9 Cough, unspecified (principal); R05.1 Acute cough
CPT/HCPCS: 0241U; 71046